=== PATIENT | female | born 1985 | race Caucasian/White ===

== ENCOUNTER 2017-08-23 18:26 | Inpatient (IN) | payer OTHER ==
[~2017-08-23] VITALS: Ht 167.6 cm; Wt 86.2 kg
[2017-08-23] MEDS ORDERED: IBUPROFEN 800 MG TAB PO PRN (18:30)
[2017-08-23] MEDS ORDERED: OXYTOCIN 20 UNITS in LACTATED RINGERS 1,000 ML IV SCH (18:30)
[2017-08-23] MEDS ORDERED: CARBOPROST 250 MCG/ML AMP IM PRN (18:30)
[2017-08-23] MEDS ORDERED: LACTATED RINGERS 1,000 ML IV SCH ×2 (18:30→18:40)
[2017-08-23] MEDS ORDERED: METHYLERGONOVINE 0.2 MG/ML AMP IM PRN (18:30)
[2017-08-23] MEDS ORDERED: OXYTOCIN 10 UNITS/ML VIAL IM ONE (18:40)
[2017-08-23] MEDS ORDERED: AMPICILLIN 2,000 MG in NACL 0.9% 100 ML IV ONE (18:40)
[2017-08-23] MEDS ORDERED: PREN-546 PO (19:01)
[2017-08-23] MEDS ORDERED: FERR-252 PO (19:01)
[2017-08-23 19:35] LABS: BASOPHILS % (AUTO) 0.5 % (0.0-2.0); EOSINOPHILS # (AUTO) 0.1 K/uL (0-0.4); EOSINOPHILS % (AUTO) 1.3 % (0.0-4.0); HEMATOCRIT 37.3 % (36-48); HEMOGLOBIN 12.3 g/dL (12.0-16.0); LYMPHOCYTES # (AUTO) 1.8 K/uL (2.5-16.5); LYMPHOCYTES % (AUTO) 16.8 % (20.5-51.1); MEAN CORPUSCULAR HEMOGLOBIN 28 pg (27-31); MEAN CORPUSCULAR HGB CONC 33 g/dL (33-37); MEAN CORPUSCULAR VOLUME 85.6 fL (80-94); MONOCYTES # (AUTO) 0.6 K/uL (0.8-1.0); MONOCYTES % (AUTO) 5.4 % (1.7-9.3); NEUTROPHILS # (AUTO) 8.1 K/uL (1.8-7.7); PLATELET COUNT (AUTO) 267 K/uL (140-450); RED BLOOD CELL COUNT(AUTO) 4.36 MIL/uL (4.20-5.40); RED CELL DISTRIBUTION WIDTH 13.7 % (11.6-13.7); WHITE BLOOD COUNT (AUTO) 10.6 K/uL (4.8-10.8)
[2017-08-23 19:38] LABS: APPEARANCE,URINE CLEAR (CLEAR); BILIRUBIN,URINE NEGATIVE (NEGATIVE); BLOOD, URINE NEGATIVE (NEGATIVE); COLOR,URINE YELLOW (YELLOW); LEUKOCYTE ESTERASE ,URINE TRACE (NEGATIVE); NITRITE, URINE NEGATIVE (NEGATIVE); UGLUCOSE NEGATIVE (NEGATIVE)
[2017-08-23] MEDS ORDERED: AMPICILLIN 2,000 MG VIAL ONE (19:38)
[2017-08-23] MEDS ORDERED: AMPICILLIN 1,000 MG VIAL IVP SCH (20:00)
[2017-08-23] MEDS ORDERED: MISOPROSTOL 25 MCG TAB VG PRN (20:15)
[2017-08-23 21:03] LABS: RBC,URINE 0-5 (RARE) /HPF (0-5)
[2017-08-23 21:04] LABS: WBC,URINE 0-5 (RARE) /HPF (0-5)
[2017-08-23] MEDS ORDERED: AMPICILLIN 1,000 MG VIAL ONE (23:31)
[2017-08-24] MEDS: AMPICILLIN 1,000 MG VIAL IVP SCH ×2 (00:01→04:06)
[2017-08-24] MEDS ORDERED: OXYTOCIN 20 UNITS/LR PREMIX 1,000 ML IV ONE (00:40)
[2017-08-24] MEDS ORDERED: LIDOCAINE 1% 500 MG/50 ML VIAL INJ SCH (03:30)
[2017-08-24] MEDS ORDERED: AMPICILLIN 1,000 MG VIAL ONE (03:40)
[2017-08-24] MEDS ORDERED: PROMETHAZINE 25 MG/ML VIAL ONE ×2 (04:02→06:05)
[2017-08-24] MEDS: PROMETHAZINE 25 MG/ML VIAL IVP PRN ×2 (04:10→06:10)
[2017-08-24] MEDS: NALBUPHINE 10 MG/ML AMP IVP PRN ×2 (04:10→06:10)
[2017-08-24] MEDS ORDERED: NALBUPHINE 10 MG/ML AMP ONE (06:05)
[2017-08-24] MEDS ORDERED: OXYTOCIN 10 UNITS/ML VIAL ONE (06:24)
[2017-08-24] MEDS ORDERED: LIDOCAINE MPF 1% - **ER/OR** 0 ML ONE (06:24)
[2017-08-24] MEDS ORDERED: TEMAZEPAM 15 MG CAP PO PRN (07:50)
[2017-08-24] MEDS ORDERED: BENZOCAINE/MENTHOL 20%-0.5% 60 GM CAN TP PRN (07:50)
[2017-08-24] MEDS ORDERED: OXYTOCIN 10 UNITS/ML VIAL IM PRN (07:50)
[2017-08-24] MEDS ORDERED: METHYLERGONOVINE 0.2 MG/ML AMP IM PRN (07:50)
[2017-08-24] MEDS ORDERED: oxyCODONE/APAP 5/325 MG 1 TAB TAB PO PRN (07:50)
[2017-08-24] MEDS ORDERED: MEASLES, MUMPS, AND RUBELLA 1 VIAL SQVAC PRN (07:50)
[2017-08-24] MEDS ORDERED: IBUPROFEN 800 MG TAB PO PRN (07:50)
[2017-08-24] MEDS ORDERED: HYDROcodone/APAP 5/325 MG 1 TAB TAB PO PRN (07:50)
[2017-08-24] MEDS ORDERED: DOCUSATE SOD/SENNA 50/8.6 MG 1 TAB PO SCH (21:00)
[2017-08-25 06:51] LABS: HEMATOCRIT 33.3 % (36-48); HEMOGLOBIN 11.5 g/dL (12.0-16.0)
--- NOTE | 2017-08-25 09:23 | NUR ---
PATIENT HAS BEEN SCREENED AND CATEGORIZED LOW NUTRITION RISK. PATIENT WILL BE SEEN WITHIN 7 DAYS OF ADMISSION. 08/31/[address]
== END 2017-08-26 20:00 | disposition home or self-care (01) | DRG 560 ==
LOC: MLD 18:26 → MFCC 08-24 10:08
PROVIDERS: ADMIT Obstetrics & Gynecology; ATTEND Obstetrics & Gynecology
PROC: 3E033VJ Introduction of Other Hormone into Peripheral Vein, Percutaneous Approach (ICD-10-PCS; principal; 2017-08-24)
PROC: 10E0XZZ Delivery of Products of Conception, External Approach (ICD-10-PCS; 2017-08-24)
PROC: 0HQ9XZZ Repair Perineum Skin, External Approach (ICD-10-PCS; 2017-08-24)
DX: O99.824 Streptococcus B carrier state complicating childbirth (principal); Z82.49 Family history of ischemic heart disease and other diseases of the circulatory system; O70.0 First degree perineal laceration during delivery; Z37.0 Single live birth; Z3A.39 39 weeks gestation of pregnancy; Z90.49 Acquired absence of other specified parts of digestive tract
CPT/HCPCS: 36415; 59409; 81001; 85018; 85025; 86592; 86886; 86900; 86901; 90715; J0290; J2001; J2300; J2550; J2590; J7120